=== PATIENT | male | born 1980 | race Caucasian/White ===

== ENCOUNTER 2016-12-26 02:20 | Emergency (ER) | payer OTHER, MEDICAID ==
[2016-12-26 02:27] VITALS: BP 136/92; BMI 33.7
--- NOTE | 2016-12-26 02:38 | DR.GENAD ---
HPI - PCP Primary Care Physician: [facility] - Complaint/Symptoms Chief Complaint:: PAIN IN LOWER BACK AND LEFT SHOULDER . FELL OFF A ESCALATOR 1 WEEK AGO AND LANDED ON HIS TAIL. Self Treatment fo Chief Complaint: MUSCLE RELAXER AND LORTAB - Nurses notes reviewed Nurses Notes Review: Yes - Source History Provided: Patient - Mode of Arrival Mode of Arrival: Ambulatory - Timing Onset of Chief Complaint: 12/19/16 Came on: Gradually - Duration Duration: Intermittent How lon Duration: Days - Location Location: back and shoulder - Severity Severity: Moderate - Modifying Factors Worsens:: movement - Other History Other History: Hx of shermens disease, hx of left shoulder problem and hip pain. PMH - PMH Past Medical History: Yes Past Medical History: Diabetes Past Medical History Comment: THYROID CANCER METS TO LYMPH NODES. SHERMANS DISEASE Past Surgical History: Yes Surgical History: Cholecystectomy - Family History History of Family Medical Conditions: Yes Family Medical History: Diabetes Mellitus - Social History Type of Tobacco Use: Cigarettes Alcohol Use: None Do you use any recreational Drugs:: No Lives With: Spouse Lives Where: Home - infectious screening Have you traveled outside the country in the last 6 months?: No Isolation: Standard PE - Vital Signs Vitals: Temperature 98.1 F Pulse Rate 110 Respiratory Rate 18 Blood Pressure 136/92 O2 Sat by Pulse Oximetry 96 Course - Treatment Treatment: has seen multiple doctors in the past and currently. States he was seeing a pain management doctor but due to seeing other specialist was released. ROR - Labs Reviewed Laboratory: Specimen Type Clean catch urine 12/26/16 03:07 Urine Color Yellow (YELLOW) 12/26/16 03:07 Urine Appearance Clear (CLEAR) 12/26/16 03:07 Urine pH 5.0 (5.0 - 8.0) 12/26/16 03:07 Ur Specific [place] 1.010 (1.000-1.030) 12/26/16 03:07 Urine Protein Negative (NEGATIVE) 12/26/16 03:07 Urine Glucose (UA) 4+ (NEGATIVE) 12/26/16 03:07 Urine Ketones Negative (NEGATIVE) 12/26/16 03:07 Urine Occult Blood Negative (NEGATIVE) 12/26/16 03:07 Urine Nitrite Negative (NEGATIVE) 12/26/16 03:07 Urine Bilirubin Negative (NEGATIVE) 12/26/16 03:07 Urine Urobilinogen Normal (NORMAL) 12/26/16 03:07 Ur Leukocyte Esterase Negative (NEGATIVE) 12/26/16 03:07 Urine RBC 0-3 /HPF (NEGATIVE) 12/26/16 03:07 Urine WBC 0-3 /HPF (NEGATIVE) 12/26/16 03:07 Ur Squamous Epith Cells Few /HPF (NEGATIVE) 12/26/16 03:07 Urine Bacteria Negative /HPF (NEGATIVE) 12/26/16 03:07 Ur Culture Indicated? No/not indicated 12/26/16 03:07 Urine Opiates Screen Positive (NEG=<300) 12/26/16 03:07 Urine Methadone Screen Negative (NEG=<300) 12/26/16 03:07 Ur Barbiturates Screen Negative (NEG=<200) 12/26/16 03:07 Ur Phencyclidine Scrn Negative (NEG=<25) 12/26/16 03:07 Ur Amphetamines Screen Negative (NEG=<1000) 12/26/16 03:07 U Benzodiazepines Scrn Positive (NEG=<200) 12/26/16 03:07 Urine Cocaine Screen Negative (NEG=<300) 12/26/16 03:07 U Marijuana (THC) Screen Negative (NEG=<50) 12/26/16 03:07 - Diagnosis Discharge Problem: Chronic pain disorder - Discharge Plan Condition: Stable Prescriptions: Cyclobenzaprine HCl [FLEXERIL 10 MG *] 10 mg PO HS #20 tab Indomethacin [Indocin Cap 25 mg] 25 mg PO TID #30 cap - Follow ups/Referrals Follow ups/Referrals: NFD,None [Primary Care Provider] - 3 days - Instructions
[2016-12-26 03:24] LABS: BILIRUBIN,URINE NEGATIVE (NEGATIVE); BLOOD/HEMOGLOBIN,URINE NEGATIVE (NEGATIVE); GLUCOSE, URINE 4+ (NEGATIVE); KETONES,URINE NEGATIVE (NEGATIVE); LEUKOCYTE ESTERASE ,URINE NEGATIVE (NEGATIVE); NITRITES,URINE NEGATIVE (NEGATIVE); PROTEIN,URINE NEGATIVE (NEGATIVE); UROBILINOGEN,URINE NORMAL (NORMAL)
[2016-12-26 03:40] LABS: APPEARANCE,URINE CLEAR (CLEAR); COLOR,URINE YELLOW (YELLOW)
[2016-12-26] MEDS ORDERED: HALDOL INJ IM ONE (03:40)
[2016-12-26] MEDS ORDERED: BENADRYL INJ 50 MG VIAL IM ONE (03:40)
[2016-12-26] MEDS ORDERED: DEMEROL INJ IM ONE (03:40)
[2016-12-26 03:41] LABS: BACTERIA,URINE NEGATIVE /HPF (NEGATIVE); RBC,URINE 0-3 /HPF (NEGATIVE); SQUAMOUS EPITHELIAL CELL,UR FEW /HPF (NEGATIVE)
[2016-12-26] MEDS ORDERED: BENADRYL INJ 50 MG VIAL ONE (03:43)
[2016-12-26] MEDS ORDERED: DEMEROL INJ ONE (03:44)
[2016-12-26] MEDS ORDERED: HALDOL INJ ONE (03:44)
== END 2016-12-26 03:59 | disposition home or self-care (01) ==
LOC: ER 02:20
DX: G89.4 Chronic pain syndrome (principal); W10.0XXA Fall (on)(from) escalator, initial encounter; Y92.9 Unspecified place or not applicable
CPT/HCPCS: 80307; 81001; 96372; 99282; G0434; J1200; J1630; J2175